=== PATIENT | female | born 1985 | race Caucasian/White ===

== ENCOUNTER → 2023-07-10 11:07 | Outpatient (REF) | payer BC, SELFPAY | LOC: PAVMRI 11:07 | PROVIDERS: ATTENDING PHYSICIAN Psychiatry & Neurology Neurology; FAMILY PHYSICIAN Radiology Diagnostic Radiology | DX: T85.192D Other mechanical complication of implanted electronic neurostimulator of spinal cord electrode (lead), subsequent encounter (principal) | CPT/HCPCS: 70360; 71046; 72156; A9575 ==